=== PATIENT | male | born 1945 | race Caucasian/White ===

== ENCOUNTER → 2017-01-06 | Outpatient (CLI) | payer OTHER | LOC: FIMAGING 09:04 | PROVIDERS: ATTEND Orthopaedic Surgery | DX: Z01.818 Encounter for other preprocedural examination (principal); M17.12 Unilateral primary osteoarthritis, left knee; M25.462 Effusion, left knee ==

== ENCOUNTER 2017-01-11 12:22 | Observation (INO) | payer OTHER ==
[~2017-01-11 12:22] MED LIST: FAMOTIDINE 20 MG TAB PO ONE; ROPIVACAINE 0.2% 80 MG, EPINEPHrine 0.2 MG, KETOROLAC TROMETHAMINE 30 MG in BAG 0 ML IU ONE; TRANEXAMIC ACID 3,000 MG in NS 50 ML IRR ONE
[2017-01-13] MEDS ORDERED: VANCOMYCIN 1 GM VIAL ONE (08:54)
[2017-01-13] MEDS ORDERED: TRANEXAMIC ACID 3,000 MG/50 ML BAG IRR ONE (08:54)
--- NOTE | 2017-01-13 11:08 | PDHPUP ---
History & Physical Update H&P update statement: This history and physical update is based on an assessment of the patient which was completed after admission or registration (within 24 hours), but prior to the surgery/procedure. H&P update: H&P reviewed & patient examined, no change in patient's condition since H&P completed
[2017-01-13] MEDS ORDERED: ACETAMINOPHEN 325 MG TAB PO ONE (11:16)
[2017-01-13] MEDS ORDERED: DEXAMETHASONE 4 MG/ML VIAL IVP ONE (11:16)
[2017-01-13] MEDS ORDERED: ceFAZolin 2 GM/DEXTROSE 100 ML IV ONE (11:16)
[2017-01-13] MEDS ORDERED: LIDOCAINE 1% 2 ML INJ ID PRN (11:23)
[2017-01-13] MEDS ORDERED: LR 1,000 ML IV ONE (11:23)
[2017-01-13] MEDS ORDERED: LIDOCAINE 1% 2 ML INJ ONE (11:24)
[2017-01-13] MEDS ORDERED: TRANEXAMIC ACID 3,000 MG in NS 50 ML IRR ONE (12:00)
[2017-01-13] MEDS ORDERED: ROPI/epiNEPH/KETOROLAC JOINT COCKTAIL IU ONE (12:00)
[2017-01-13 12:03] LABS: % IMMATURE GRANULYOCYTES 0.4 % (0.0-1.1); ABSOLUTE IMMATURE GRANULOCYTES 0.02 10^3/uL (0.00-0.10); ADD DIFF? NO; ADD MORPH? NO; ADD SCAN? NO; ATYPICAL LYMPHOCYTE FLAG 10 (0-99); FRAGMENT RBC FLAG 0 (0-99); HEMATOCRIT 47.7 % (40.0-51.0); HEMOGLOBIN 16.5 g/dL (13.7-17.5); LEFT SHIFT FLG 0 (0-99); LIPEMIA HEMOLYSIS FLAG 90 (0-99); MEAN CELL HEMOGLOBIN 31.6 pg (27.9-34.1); MEAN CELL HEMOGLOBIN CONCENTR. 34.6 g/dL (32.4-36.7); MEAN CELL VOLUME 91.4 fL (81.5-99.8); MEAN PLATELET VOLUME 10.2 fL (8.7-11.7); PLATELET CLUMPS FLAG 0 (0-99); PLATELET COUNT 118 10^3/uL (150-400); RED BLOOD CELL COUNT 5.22 10^6/uL (4.40-6.38); RED CELL DISTRIBUTION WIDTH 13.3 % (11.5-15.2)
[2017-01-13 12:19] LABS: ANION GAP 12 mEq/L (8-16); CALCIUM 9.3 mg/dL (8.5-10.4); CARBON DIOXIDE 22 mEq/l (22-31); CHLORIDE 107 mEq/L (97-110); CREATININE 0.9 mg/dL (0.7-1.3); GLOMERULAR FILTRATION RATE > 60; GLUCOSE 114 mg/dL (70-100); POTASSIUM 4.1 mEq/L (3.5-5.2); SODIUM 141 mEq/L (134-144)
[2017-01-13] MEDS ORDERED: PROPOFOL 200 MG/20 ML VIAL ONE (12:56)
[2017-01-13] MEDS ORDERED: fentaNYL 100 MCG/2 ML INJ ONE ×2 (13:04→13:26)
[2017-01-13] MEDS ORDERED: MIDAZOLAM 2 MG/2 ML VIAL IVP ONE (13:08)
[2017-01-13] MEDS ORDERED: NALOXONE HCL 0.4 MG/ML INJ IVP PRN ×2 (13:08→13:12)
[2017-01-13] MEDS ORDERED: MIDAZOLAM 2 MG/2 ML VIAL ONE (13:08)
[2017-01-13] MEDS ORDERED: fentaNYL 100 MCG/2 ML INJ IVP PRN (13:12)
[2017-01-13] MEDS ORDERED: OXYCODONE/APAP 5/325 TAB PO PRN (13:12)
[2017-01-13] MEDS ORDERED: ONDANSETRON 4 MG/2 ML VIAL IVP PRN ×2 (13:12→14:36)
[2017-01-13] MEDS ORDERED: HYDROmorphONE/DILAUDID 1 MG/ML INJ IVP PRN (13:12)
[2017-01-13] MEDS ORDERED: ALBUTEROL 3 ML DEYVIAL IH PRN (13:12)
[2017-01-13] MEDS ORDERED: ROPIVACAINE HCL 150 MG/30 ML INJ ONE (13:26)
[2017-01-13] MEDS ORDERED: LIDOCAINE 2% 5 ML SDV ONE (13:27)
[2017-01-13] MEDS ORDERED: ONDANSETRON 4 MG/2 ML VIAL ONE (13:27)
[2017-01-13] MEDS ORDERED: DEXAMETHASONE 4 MG/ML VIAL ONE (13:27)
--- NOTE | 2017-01-13 13:44 | PDANEPAE ---
ANE History of Present Illness Left knee ANE Past Medical History - Cardiovascular History Hx Hypertension: No Hx Arrhythmias: No Hx Chest Pain: No Hx Coronary Artery / Peripheral Vascular Disease: No Hx CHF / Valvular Disease: No Hx Palpitations: No - Pulmonary History Hx COPD: No Hx Asthma/Reactive Airway Disease: No Hx Recent Upper Respiratory Infection: No Hx Oxygen in Use at Home: No Hx Sleep Apnea: Yes Sleep Apnea Screening Result - Last Documented: Positive - Neurologic History Hx Cerebrovascular Accident: No Hx Seizures: No Hx Dementia: No - Endocrine History Hx Diabetes: Yes Endocrine History Comment: pre diabetic Hgb A1c 6.0 - Renal History Hx Renal Disorders: No - Liver History Hx Hepatic Disorders: No - Neurological & Psychiatric Hx Hx Neurological and Psychiatric Disorders: No Neurological / Psychiatric History Comment: numbness back of neck s/p cervical fusion - Cancer History Hx Cancer: No - Congenital Disorder History Hx Congenital Disorders: No - GI History Hx Gastrointestinal Disorders: Yes Gastrointestinal History Comment: GERD - Other Health History Other Health History: OA-left knee - Chronic Pain History Chronic Pain: Yes (L knee) - Surgical History Prior Surgeries: R rotator cuff -46-43 (5th time). 5th cervical spine sx : plated C2/C7 2014. R total hip. cataract extraction w/IOL-bilat lens implants. Lap brisa. Bilat foot sx-L achilles tendon. L inguinal hernia repair w/mesh;. R hand sx 1993;. L hand/ulna sx 1962;. T and A (x2) ages 3 and 4; ANE Review of Systems Review of Systems: - Exercise capacity METS (RN): 4 METS ANE Patient History - Allergies Allergies/Adverse Reactions: hydrocodone Allergy (Verified 12/30/16 16:12) Itching Vdkhjgv-Swh-Zye Reductase Inhibitor Allergy (Verified 12/30/16 16:12) Other-Enter Comments tetracycline Allergy (Verified 12/30/16 16:12) Itching - Home Medications Home Medications: Aspirin EC [Aspirin EC 81 mg (*)] 81 mg PO DAILY 12/30/16 [Last Taken 01/04/17] Ezetimibe [Zetia 10 MG (*)] 10 mg PO DAILY 12/30/16 [Last Taken 01/09/17] Herbals/Supplements -Info Only 1 ea PO DAILY 12/30/16 [Last Taken 12/30/16] Multivitamins [Multivitamin (*)] 1 each PO DAILY 12/30/16 [Last Taken 12/30/16] Omeprazole 40 mg PO DAILY 12/30/16 [Last Taken 01/09/17] Tadalafil [Cialis] 20 mg PO DAILY PRN 12/30/16 [Last Taken 01/04/17] Testosterone Cream 20% 1 ines TP DAILY 12/30/16 [Last Taken 01/04/17] metFORMIN HCL [Glucophage 500 mg (*)] 500 mg PO BIDMEAL 12/30/16 [Last Taken 07/22] - NPO status NPO Since - Liquids (Date): 01/13/17 NPO Since - Liquids (Time): 08:00 NPO Since - Solids (Date): 01/12/17 NPO Since - Solids (Time): 21:30 - Smoking Hx Smoking Status: Former smoker ANE Labs/Vital Signs - Labs Result Diagrams: 01/13/17 11:50 01/13/17 11:50 - Vital Signs Blood Pressure: 167/89 Heart Rate: 73 Respiratory Rate: 15 O2 Sat (%): 96 Height: 185.42 cm Weight: 111.13 kg ANE Physical Exam - Airway Neck exam: decreased ROM Mallampati Score: Class 2 Mouth exam: normal dental/mouth exam - Pulmonary Pulmonary: clear to auscultation - Cardiovascular Cardiovascular: regular rate and rhythym - ASA Status ASA Status: III ANE Anesthesia Plan Anesthesia Plan: GA w LMA
[2017-01-13] MEDS ORDERED: LACTULOSE 20 GM/30 ML UDCUP PO PRN (14:36)
[2017-01-13] MEDS ORDERED: METOCLOPRAMIDE 10 MG/2 ML VIAL IVP PRN (14:36)
[2017-01-13] MEDS ORDERED: PROMETHAZINE HCL 25 MG SUPPR PR PRN (14:36)
[2017-01-13] MEDS ORDERED: PROMETHAZINE HCL 25 MG/ML INJ IVP PRN (14:36)
[2017-01-13] MEDS ORDERED: BISACODYL 10 MG SUPP PR PRN (14:36)
[2017-01-13] MEDS ORDERED: oxyCODONE IR 5 MG TAB PO PRN (14:36)
[2017-01-13] MEDS ORDERED: diphenhydrAMINE 25 MG CAP PO PRN (14:36)
[2017-01-13] MEDS ORDERED: CYCLOBENZAPRINE 10 MG TAB PO PRN (14:36)
[2017-01-13] MEDS ORDERED: TEMAZEPAM 15 MG CAP PO PRN (14:36)
[2017-01-13] MEDS ORDERED: DIPHENOXYLATE/ATROPINE LOMOTIL 1 TAB PO PRN (14:36)
[2017-01-13] MEDS ORDERED: ONDANSETRON DISINTEGRATING 4 MG TAB PO PRN (14:36)
[2017-01-13] MEDS ORDERED: MAGNESIUM HYDROXIDE 30 ML UDCUP PO PRN (14:36)
[2017-01-13] MEDS ORDERED: POLYETHYLENE GLYCOL 3350 17 GM PKT PO PRN (14:36)
--- NOTE | 2017-01-13 14:36 | POSTOPPROG ---
Post Op Note Date of Operation: 01/13/17 Surgeon: Alee Barnes Acid Concentrator: desean garcia Anesthesiologist: winston Anesthesia: IV Sedation, Local (Specify) (adductor canal), Spinal Pre-op Diagnosis: L knee OA Post-op Diagnosis: L knee OA Indication: failed conservative therapies Procedure: L partial knee arthroplasty, robot assist Inf/Abcess present in the surg proc area at time of surgery?: No EBL: Minimal
--- NOTE | 2017-01-13 14:47 | POSTANESTH ---
Post Anesthetic Evaluation Cardiovascular Status: Normal, Stable Respiratory Status: Normal, Stable Level of Consciousness/Mental Status: Can Participate in Eval, Alert and Oriented Pain Control: Adequate, Prn Tx Ordered Nausea/Vomiting Control: Adequate, Prn Tx Ordered Complications Possibly Related to Anesthesia: None Noted
[2017-01-13] MEDS: metFORMIN HCL 500 MG TAB PO SCH (17:55)
[2017-01-13] MEDS: ACETAMINOPHEN 325 MG TAB PO SCH ×2 (17:56→23:50)
[2017-01-13] MEDS: LR 1,000 ML IV SCH (18:06)
[2017-01-13] MEDS: ceFAZolin 2 GM/DEXTROSE 100 ML IV SCH (20:56)
[2017-01-13] MEDS: SENNOSIDES/DOCUSATE SODIUM TAB PO SCH (20:57)
[2017-01-13] MEDS: FAMOTIDINE 20 MG TAB PO SCH (20:57)
[2017-01-13] MEDS: ASPIRIN 325 MG TAB PO SCH (21:04)
[2017-01-14] MEDS: LR 1,000 ML IV SCH (01:59)
[2017-01-14 05:28] LABS: HEMATOCRIT 44.3 % (40.0-51.0); HEMOGLOBIN 15.1 g/dL (13.7-17.5)
[2017-01-14] MEDS: ACETAMINOPHEN 325 MG TAB PO SCH ×2 (05:39→11:57)
[2017-01-14] MEDS: ceFAZolin 2 GM/DEXTROSE 100 ML IV SCH (05:39)
[2017-01-14 08:16] VITALS: PULSE 70; RESP 18; TEMP 97.5; O2SAT 93
[2017-01-14] MEDS: ASPIRIN 325 MG TAB PO SCH (08:48)
[2017-01-14] MEDS: SENNOSIDES/DOCUSATE SODIUM TAB PO SCH (08:49)
[2017-01-14] MEDS: metFORMIN HCL 500 MG TAB PO SCH (08:49)
[2017-01-14] MEDS: FAMOTIDINE 20 MG TAB PO SCH (08:50)
[2017-01-14] MEDS ORDERED: PANTOPRAZOLE SODIUM 40 MG TAB PO SCH (09:00)
[2017-01-14] MEDS ORDERED: EZETIMIBE 10 MG TAB PO SCH (09:00)
--- NOTE | 2017-01-14 12:08 | SOAPPROG ---
SOAP Progress Note Assessment/Plan: Assessment: Patient is doing well POD 1 s/p L PKA Pain management: pain is well controlled on oral pain meds. VTE ppx: recommend aspirin daily for 3 weeks, cont KAYLEIGH and SCDs Anemia: level is expected initially postop. Asymptomatic. Continue to monitor D/c planning: d/c to home today pending release from PT Plan: 01/14/17 12:07 Objective: Vital Signs Temp Pulse Resp BP Pulse Ox 36.4 C 70 18 153/90 H 93 01/14/17 08:00 01/14/17 08:00 01/14/17 08:00 01/14/17 08:00 01/14/17 08:00 Laboratory Results 01/14/17 04:29 01/13/17 11:50 01/13/17 01/14/17 01/15/17 05:59 05:59 05:59 Intake Total 2578 Output Total 1730 Balance 848 ICD10 Worksheet Patient Problems: Problems Problem Status Onset Osteoarthritis of left knee Acute - ICD10 Problem Qualifiers (1) Osteoarthritis of left knee Qualifiers: Osteoarthritis type: primary Qualified Code(s): M17.12 - Unilateral primary osteoarthritis, left knee
[2017-01-14 12:10] VITALS: BP 155/77
--- NOTE | 2017-01-15 17:06 | ASDISCHSUM ---
Discharge Information Plan Status:Home with No Needs Medically Cleared to Leave:01/14/2017 Discharge Date:01/14/2017 12:55 PM CM D/C Disposition:Home, Routine, Self-Care ADT D/C Disposition:Home, Routine, Self-Care Projected Discharge Date:01/14/2017 12:00 AM Transportation at D/C:Family Discharge Delay Reason: Follow-Up Date:01/14/2017 12:00 AM Discharge Slot: Final Diagnosis:L PKA Placement Information Patient Contact Information Contact Name:SANDRA Relationship: Address:[address] City:[place] Alternate Phone: State/Zip Code:[place] [address] Email: Financial Information Financial Class: Primary Plan Desc:MEDICARE OUTPATIENT Primary Plan Number:[id number] Secondary Plan Desc:[facility] Secondary Plan Number:[id number] Assessment Information Intervention Information Intervention Type:*Incorrect Registration Date of Service:01/13/2017 03:12 PM Patient Type:Inpatient Staff Member:Lizy Donnelly Hours: Discipline: Severity: Comment:
--- NOTE | 2017-01-15 17:08 | ASMTCMCOM ---
CM Note CM Note Notes: Reviewed chart, spoke w/ KENYETTA Salinas. Pt to discharge home independently w/ family support and no identified needs. No OT recs. PT rec outpt rehab and use of a front wheeled walker. Pt to f/u as directed. CM avail for any further issues or concerns. Date Signed: 01/14/2017 04:16 PM Electronically Signed By:Chastity Hair
--- NOTE | 2017-01-16 09:19 | GOP ---
[f rep st] OPERATIVE REPORT DATE OF OPERATION: 01/13/2017 SURGEON: Anna Barnes MD BOUNTY TRAPPER: Jhony Julien, G[place]. ANESTHESIA: Spinal. PREOPERATIVE DIAGNOSIS: Left knee osteoarthritis. POSTOPERATIVE DIAGNOSIS: Left knee osteoarthritis. PROCEDURE PERFORMED: Left medial compartment partial knee replacement with computer navigation, robotic assist. FINDINGS: Severe medial compartment osteoarthritis. INDICATIONS: This is a 71 year old male with progressive pain of the left knee unresponsive to conservative care. Risks and benefits of surgical intervention were explained in detail. DESCRIPTION OF PROCEDURE: The patient was brought to the operating room and placed on the table in supine position. Spinal anesthesia was induced without difficulty. A pneumatic tourniquet was applied about the left proximal thigh and the leg was prepped and draped in sterile fashion. Attention was turned first to the distal aspect of the left femur. At 3 cm proximal to the lateral rise of the femur, 2 percutaneous half pins were placed for fixation of the femoral array. In a similar fashion, 2 pins were placed anterolateral on the tibia for fixation of the tibial array. External land marking and registration of the hip center was performed without difficulty. After exsanguination by elevation, the tourniquet was inflated to 275 mmHg. Incision was made from the tibial tuberosity to the superior pole of the patella. Dissection was carried out through the subcutaneous tissue to the deep fascia using Bovie electrocautery for hemostasis. Medial parapatellar arthrotomy was carried out to the superior pole of the patella. The medial collateral ligament was elevated and the infrapatellar fat pad was resected. Internal femoral and tibial registration was carried out without difficulty and the femoral and tibial checkpoints were placed and verified for accuracy. Attention was turned to the femur. The foot print for the size 6 femoral component was cut with the 6 mm bur using the Kan[employer] robotic system and verified for accuracy against the CT based plan. The hole was cut for the femoral post. In a similar fashion, the 6 mm bur was used to cut the foot print for the size 5 tibial component using the [employer] system and verified for accuracy against the CT based plan. Attention was turned to the posterior aspect of the knee and remnants of the medial meniscus were excised. The posterior capsule was injected with ropivacaine, epinephrine and Toradol. Trial reduction was carried out and there was excellent range of motion, alignment and stability using the size 6 femoral component and the size 5 tibial component, 5 x 8 mm polyethylene. All trials were then removed. The joint was thoroughly irrigated and carefully dried. One package of cement and 1 gram of vancomycin were mixed in the vacuum mixer and placed on the fixation surfaces of all components. The components were implanted and all excess cement was thoroughly removed. Implant placement was verified against the CT view plan and found to be excellent. The tourniquet was deflated and all bleeders were coagulated. The wound was thoroughly irrigated and closed using interrupted sutures of 2-0 Vicryl for the joint capsule. The subcu was closed with 3-0 Vicryl and the skin with 4-0 Monocryl. Dermabond and Steri-Strips were applied, followed by a compressive dressing. The patient was then moved from the operating room to the recovery room in good condition, having tolerated the procedure well. CASE CLASSIFICATION: Clean. /[id number]/MODL MTDD
--- NOTE | 2017-01-19 03:59 | GDS ---
[f rep st] DISCHARGE SUMMARY ADMISSION DIAGNOSIS: Left knee osteoarthritis of the medial compartment. DISCHARGE DIAGNOSIS: Left knee osteoarthritis of the medial compartment. PROCEDURE: Left partial knee arthroplasty of the medial compartment, robot assist. VTE PROPHYLAXIS: Full-strength aspirin x21 days. BRIEF DESCRIPTION OF HOSPITAL STAY: Patient was admitted for an elective joint arthroplasty. The pa tient tolerated the procedure well and has passed physical therapy. The patient was given appropriat e antibiotic prophylaxis and venous thromboembolism prophylaxis. The patient's pain was well control led on oral pain medication, patient was holding down food, and had urinated. Decision was made to d ischarge the patient. The patient was given post-operative prescriptions pre-operatively. PLAN: Please follow up with Dr. Barnes as scheduled on 02/02/2017. /[id number]/MODL
== END 2017-01-14 12:55 | disposition home or self-care (01) ==
LOC: INTOOBSV 01-13 10:48 → F3N 01-13 10:48
PROVIDERS: ADMIT Orthopaedic Surgery; ATTEND Orthopaedic Surgery
PROC: 8E0YXBZ Computer Assisted Procedure of Lower Extremity (ICD-10-PCS; principal; 2017-01-13 13:15)
PROC: 0SRD0JZ Replacement of Left Knee Joint with Synthetic Substitute, Open Approach (ICD-10-PCS; principal; 2017-01-13 13:15)
DX: M17.12 Unilateral primary osteoarthritis, left knee (principal); K21.9 Gastro-esophageal reflux disease without esophagitis; G47.33 Obstructive sleep apnea (adult) (pediatric); R73.03 Prediabetes; Z87.891 Personal history of nicotine dependence; Z98.1 Arthrodesis status
CPT/HCPCS: 20985; 27446; 73560; 97161; 97165; C1713; C1776; G8978; G8979; G8980; G8987; G8988; G8989; J0171; J0690; J1100; J1885; J2250; J2405; J2704; J2795; J3010; J3370